=== PATIENT | female | born 1960 | race Caucasian/White ===

== ENCOUNTER 2024-09-25 09:46 | Outpatient (AMB) | payer BC, SELFPAY ==
--- NOTE | 2024-09-25 09:49 | A.OFFPC_ITS ---
Vital Signs 09/25/24 09:56 Height 5 ft 4 in Weight 153 lb 4 oz BMI 26.3 BP 136/70 Blood Pressure Location Rt brachial Position Sitting Respiration 14 Pulse 51 Pulse Source Pulse Oximeter Temp 97.3 F Temp Source Oral Pulse Oximetry (%) 99 Oxygen Delivery Method Room Air Intake Visit Reasons: STRATEGIC ACCOUNTS MANAGER/PErequest Intake Note: patient scheduled for new patient visit to establish care. Allergies house dust Allergy (Mild, Verified 09/25/24 09:53) Runny Nose Medication List - Last Reconciled 09/25/24 by Dm Hamilton MD No Known Home Meds Tobacco use date assessed: 09/25/24 Dental Screening Dental Screen Date: 09/25/24 Did you have a dental visit in the last 12 months?: Yes Did you have a dental problem in the last 6 months where you did not have access to dental care?: No Was dental information given to patient?: No HPI STRATEGIC ACCOUNTS MANAGER/PErequest HPI Details New Patient? ?? Prior PCP:? Ping Last office visit/CPE:? 1 yr ago CPE Acute issue(s):? Thyroid nodules. U/S & Bx x 1. Saw [facility]. Due for u/s follow up Fell & Head injury a few yrs ago. Cervical spine injury of bone & Tinnitus Some hearing loss 2 yrs ago. PMHx:? Thyroid Nodules. Herniated disc Lumbar Spine SurgHx:? Thyroid Bx Neg,. Colonoscopy. L Breast Bx Neg FHx:? Mom: Cardiac Arrhythmia, BMET Cancer. Dad: CAD & Stent HTN, HLD. SocHx:? Nonsmoker, etOH 1 glass wine 2x a week. No Drugs HPI Comments History of Present Illness Details Documentation assistance for Dm Hamilton MD, was provided by Rusty Bernstein,? Laboratory Technologist on 09/25/2024 at 10:21 AM EST. I, Dr. Hamilton, have read, observed, and verified documentation. PFSH Medical History (Updated 09/25/24 @ 10:33 by Dm Hamilton MD) Vertigo Spine disorder Arthritis Anxiety Allergy Family History (Updated 09/25/24 @ 10:13 by SMA Tesfaye) Mother High blood pressure Thyroid disorder Mother High cholesterol Father High blood pressure High cholesterol Other Cardiovascular disease Social History (Updated 09/25/24 @ 10:08 by SMA Tesfaye) Housing: House Alcohol intake: current Comment: 2times a week Patient Tobacco Use Status: Never used Tobacco e-Cigarette/Vaping Use: Never Used service: No Current occupational status: employed Current occupation: custmer service Current occupational exposures/hazards: No Cognitive needs: No Hearing needs: No Vision needs: No Questionnaire PHQ-9 Over the last 2 weeks, how often have you been bothered by any of the following problems? 1. Little interest or pleasure in doing things: not at all 2. Feeling down, depressed, or hopeless: not at all 3. Trouble falling or staying asleep, or sleeping too much: not at all 4. Feeling tired or having little energy: not at all 5. Poor appetite or overeating: not at all 6. Feeling bad about yourself - or that you are a failure or have let yourself or your family down: not at all 7. Trouble concentrating on things, such as reading the newspaper or watching television: not at all 8. Moving or speaking so slowly that other people could have noticed. Or the opposite - being so fidgety or restless that you have been moving around a lot more than usual: not at all 9. Thoughts that you would be better off or of hurting yourself in some way: not at all Total score: 0 Depression Screening Interpretation: Negative Depression Screening Done: Yes 94456 - PHQ-9 Billing: Yes Source: Developed by Drs. Reid Alonzo, Lisbeth Charles, Blade White and colleagues, with an educational brent from [employer]. Thrive Questionnaire Date Thrive assessed: 09/25/24 I am a: Patient What is your living situation today?: I have a steady place to live Within the past 12 months, did the food you bought not last and you didn't have the money to get more?: Never true Within the past 12 months, did you worry whether your food would run out before you got money to buy more?: Never true Do you have trouble paying for medicines?: No Do you have trouble getting transportation to medical appointments?: No Do you have trouble paying your heating and electricity bill?: No Do you have trouble taking care of your child, family member or friend?: No Do you have trouble with day-to-day activities such as bathing, preparing meals, shopping, managing finances, etc.?: No Are you currently unemployed and looking for a job?: No Are you interested in more education?: No Please select the resources that you would like help with: None Currently or been in a relationship where the following occur: No concerns reported THRIVE Score: 0 AUDIT C Alcohol Use Questionnaire (AUDIT-C) 1. How often do you have a drink containing alcohol?: 2-3 times a week 2. How many drinks containing alcohol do you have on a typical day when you are drinking?: 1 or 2 3. How often do you have six or more drinks on one occasion?: Never Total Score: 3 MURTAZA-7 AMB Questionnaire MURTAZA-7 Date MURTAZA - 7 assessed: 09/25/24 Feeling nervous, anxious, or on edge: 1 = Several days Not being able to stop or control worryin = Not at all Worrying too much about different things: 0 = Not at all Trouble relaxin = Several days Being so restless that it is hard to sit still: 0 = Not at all Becoming easily annoyed or irritable: 1 = Several days Feeling afraid as if something awful might happen: 0 = Not at all Total MURTAZA-7 score (0-4 normal; 5-9 mild; 10-14 moderate; 15-21 severe): 3 Source: Developed by Drs. Reid Alonzo, Lisbeth Charles, Blade White and colleagues, with an educational brent from [employer]. MURTAZA-7 Assessment Billing MURTAZA-7 Assessment Tool: MURTAZA-7 Assessment 49507 Review of Systems Const Denies chills, Denies fatigue, Denies fever(s), Denies headache(s) and Denies weakness ENT Denies dizziness and Denies headache(s) Card Denies chest pain, Denies lightheadedness, Denies dyspnea and Denies other (Palpitations) Resp Denies cough, Denies dyspnea, Denies wheezing and Denies other ( shortness of breath) Musc Denies numbness and Denies tingling Neuro Denies dizziness, Denies headache(s), Denies numbness, Denies tingling, Denies paresthesias and Denies weakness Psych Denies anxiety and Denies depression Endo Denies fatigue Aller/Immun Denies wheezing Physical exam (Primary Care) Vital Signs: Last Vital Signs Temp 97.3 F 09/25/24 09:56 Pulse 51 09/25/24 09:56 Resp 14 09/25/24 09:56 BP 136/70 09/25/24 09:56 Pulse Ox 99 09/25/24 09:56 Oxygen Delivery Method Room Air 09/25/24 09:56 BMI result Body Mass Index 26.3 Tobacco/Smoking Status: Tobacco use Status Tobacco use date assessed 09/25/24 09/25/24 10:00 Patient Tobacco Use Status Never used Tobacco 09/25/24 10:00 e-Cigarette/Vaping Use Never Used 09/25/24 10:00 PHQ-9: PHQ-9 Score PHQ-9: Total score 0 09/25/24 10:03 Depression Screening Interpretation: Negative Thrive Assessment: Date of Thrive Assessment Date Thrive assessed 09/25/24 09/25/24 10:00 Currently or been in a relationship where the following occur: No concerns reported Const General: no acute distress and well developed Nutritional Appearance: well nourished Orientation/consciousness: patient oriented x3 HENMT Head: Yes normocephalic and Yes atraumatic Eyes General: appearance normal, both eyes and all related structures Pupils: Equal, round and reactive pupils present EOM: EOMs intact bilaterally Resp Effort & Inspection: normal respiratory effort Auscultation: clear to auscultation bilaterally Cardio Rate: regular rate Rhythm: regular rhythm Heart sounds: S1 normal heart sound present, S2 normal heart sound present, no gallops, no murmurs and no rubs Neuro General: patient oriented x3 and gait normal Cranial nerves: Yes Equal, round and reactive pupils present Psych Affect: normal affect Coding Level of Care Code New Pt Level 3 (95104) Diagnoses Multiple thyroid nodules E04.2 Hearing loss H91.90 Lumbar herniated disc M51.26 Laboratory exam ordered as part of routine general medical examination Z00.00 Additional Codes MURTAZA-7 Assessment Billing - MURTAZA-7 Assessment Tool: MURTAZA-7 Assessment 11383 ([id number]) PHQ-9 - 91620 - PHQ-9 Billing: Yes ([id number]) Assessment & Plan Assessment & Plan (1) Multiple thyroid nodules: Code(s): E04.2 - Nontoxic multinodular goiter Category: Medical Plan: History?of?multiple?thyroid?nodules Workup? at?Ping?including?ultrasound?and?biopsy?x1?which?patient?says?was?negative Due?for?follow-up?ultrasound-ordered Will?review?and?compare?with?prior?workup/records?and?discuss?next?steps?with?asher lima (2) Hearing loss: Code(s): H91.90 - Unspecified hearing loss, unspecified ear Category: Medical Plan: Hearing?loss?after?fall?with?head?and?neck?injury Has?issues?with?hearing?loss?and?some?vertigo No?recent?changes She?will?let?me?know?if?she?evans s?any?changes,?would?consider?referral?for?audiometric?testing?or?referral?to?[facility] (3) Lumbar herniated disc: Code(s): M51.26 - Other intervertebral disc displacement, lumbar region Category: Medical Plan: Patient?says?she?manages?this?with?stretching?exercises Stable She?will?let?me?know?if?anything?changes (4) Laboratory exam ordered as part of routine general medical examination: Code(s): Z00.00 - Encounter for general adult medical examination without abnormal findings Category: Medical Plan: Check?labs Orders: Orders Microalbumin, Random (w Creat) Today I10 - Essential (primary) hypertension Lipid Panel Today Z00.00 - Encounter for general adult medical examination without abnormal findings UA CC w/rflx Micro + Cult Today Z00.00 - Encounter for general adult medical examination without abnormal findings Thyroid Stimulating Hormone Today E03.9 - Hypothyroidism, unspecified, E04.2 - Nontoxic multinodular goiter Comprehensive [place]. Panel Fast Today Z00.00 - Encounter for general adult medical examination without abnormal findings Complete Blood Count Auto Diff Today Z00.00 - Encounter for general adult medical examination without abnormal findings US thyroid Today E04.2 - Nontoxic multinodular goiter Free T4 (Free Thyroxine) Today E03.9 - Hypothyroidism, unspecified, E04.2 - Nontoxic multinodular goiter Triiodothyronine T3 Total Today E03.9 - Hypothyroidism, unspecified, E04.2 - Nontoxic multinodular goiter Referrals Dermatology Referral L57.8 - Other skin changes due to chronic exposure to nonionizing radiation
[2024-09-25 09:56] VITALS: BP 136/70; PULSE 51; RESP 14; TEMP 36.3; O2SAT 99; BMI 26.3
--- OUTSIDE RECORDS SUMMARY | 2024-09-25 10:10 | XMS_ITS | Clinical Summary ---
Author Organization [facility] Address [address] [place] [id number] Phone Care Team Providers Care Grain Scooper Name Role Phone Gissell Nolasco MD Primary Care Provider [phone] Surgical History Surgery Date Site/Laterality Comments MULTIPLE TOOTH EXTRACTIONS PROCEDURE: EACH ADD TOOTH EXTRACTION; COMMENT: wisdom teeth COLONOSCOPY 05/22/13 PROCEDURE: HISTORICAL COLONOSCOPY; COMMENT: tics; repeat in ten yrs Medical History Medical History Date Comments Osteoarthrosis, unspecified whether generalized or localized, unspecified site DX:Osteoarthrosis, unspecifi ed whether generalized or localized, unspecified site; COMMENT: RT KNN, HANDS Allergic rhinitis due to pollen DX:Allergic rhinitis due to pollen Disc disorder of lumbar region 09/24/2007 D X:Disc disorder of lumbar region WBC decreased DX:WBC decreased Multiple thyroid nodules DX:Mult iple thyroid nodules Hyperlipidemia 07/18/2023 DX:Hyperlipidemi a Family History Medical History Relation Name Comments Arthritis Father CAD Heart failure Maternal Grandfather Coronary artery disease Maternal Grandmother Hypertension Mother dementia, glauc manjinder, thyroid issue, osteoporosis, pacemaker Thyroid disease Mother Alcohol/Drug Paternal Grandfather ETOH Heart failure Paternal Grandmother DECEAS ED 80'S, colon cancer No Known Problems Sister Relation Name Status Comments Father Alive Maternal Grandfather Maternal Grandmother Mother (Age 94) Paternal Grandfather Paternal Grandmother Sister Alive Social History Tobacco Use Types Packs/Day Years Used Date Smoking Tobacco: Never Smokeless Tobacco: Never Alcohol Use Standard Drinks/Week Comments Yes 1.7 (1 standard drink = 0.6 oz p ure alcohol) Comments Unknown Sex and Gender Information Value Date Recorded Sex Assigned at Not on file Legal Sex Female 7:21 AM EST Gender Identity Not on file Sexual Orientation Not on file Obstetrics History Last Filed Vital Signs Vital Sign Reading Time Taken Comments Blood Pressure 134/58 10/08/2023 3:11 PM EDT Pulse 61 10/08/2023 3:11 PM EDT Temperature - - Respiratory Rate - - Oxygen Saturation - - Inhaled Oxygen Concentration - - Weight 67.6 kg (149 lb) 10/08/2023 3:11 PM EDT Height 165.1 cm (5' 5 ) 10/08/2023 3:11 PM EDT Body Mass Index 24.79 10/08/2023 3:11 PM EDT Plan of Treatment Health Maintenance Due Date Last Done Comments Breast Cancer Screening 1960 Cervical Cancer Screening: P ap Smear 09/23/1983 Pneumococcal Vaccine: 50+ Years (1 of 1 - PCV) 2012 Zoster Vaccines (2 of 2) 04/14/2020 02/18/2020 Cholesterol Screening (Lipid Panel) 04/07/2022 Colorectal Cancer Screening: Colonoscopy 04/07/2022 Depression Screening 04/07/2022 HIV Screening 04/07/2022 Hepatitis C Screening 04/07/2022 Social Influencers of Health Screening 04/07/2022 COVID-19 Vaccine (1 - 2023-2 5 season) 2023 Influenza Vaccine (Season Ended) 2024 DTaP,Tdap,and Td Vaccines (4 - Td or Tdap) 04/21/2031 04/21/2021, 09/05/2015, 08/05/2002 RSV Immunization Adult Patients (1 - 1-dose 75+ series) 2037 HIB Vaccines Aged Out No longer eligi ble based on patient's age to complete this topic HPV Vaccines Aged Out No longer eligi ble based on patient's age to complete this topic Hepatitis A Vaccines Aged Out No long er eligible based on patient's age to complete this topic Hepatitis B Vaccines Aged Out No long er eligible based on patient's age to complete this topic IPV Vaccines Aged Out No longer eligi ble based on patient's age to complete this topic MMR Vaccines Aged Out No longer eligi ble based on patient's age to complete this topic Meningococcal ACWY Vaccine Aged Out N o longer eligible based on patient's age to complete this topic Meningococcal B Vaccine Aged Out No l onger eligible based on patient's age to complete this topic Pneumococcal Vaccine: Pediatrics (0 to 5 Years) and At-Risk Patients (6 to 64 Years) Aged Out No longer eligible b ased on patient's age to complete this topic RSV Immunization Patients Under 20 months Aged Out No longer eligible b ased on patient's age to complete this topic Varicella Vaccines Aged Out No longer eligible based on patient's age to complete this topic Insurance Care Teams Grain Scooper Relationship Specialty Start Date End Date Gissell Nolasco MD PCP - General 09/11/23
== END 2024-09-25 10:30 | disposition home or self-care (01) ==
LOC: HO.HMCFM 09:47
PROVIDERS: PCP Family Medicine; Visit Provider Family Medicine
DX: E04.2 Nontoxic multinodular goiter (principal); H91.90 Unspecified hearing loss, unspecified ear; M51.26 Other intervertebral disc displacement, lumbar region; Z00.00 Encounter for general adult medical examination without abnormal findings

== ENCOUNTER → 2024-09-25 09:46 | Outpatient (BNVA) | payer BC, SELFPAY | PROVIDERS: PCP Family Medicine; Visit Provider Family Medicine | DX: Z76.89 Persons encountering health services in other specified circumstances (principal); E04.2 Nontoxic multinodular goiter; H91.90 Unspecified hearing loss, unspecified ear; M51.26 Other intervertebral disc displacement, lumbar region; Z13.30 Encounter for screening examination for mental health and behavioral disorders, unspecified; Z13.31 Encounter for screening for depression | CPT/HCPCS: 96127 ==

== ENCOUNTER 2024-10-08 09:24 | Outpatient (REF) | payer BC, SELFPAY ==
--- OUTSIDE RECORDS SUMMARY | 2024-10-08 10:15 | XMS_ITS | Clinical Summary ---
Author Organization [facility] Address [address] [place] [id number] Phone Care Team Providers Care Quality Assurance Specialist Name Role Phone Gissell Nolasco MD Primary Care Provider [phone] Surgical History Surgery Date Site/Laterality Comments MULTIPLE [...] to complete this topic Insurance Care Teams Quality Assurance Specialist Relationship Specialty Start Date End Date Gissell Nolasco MD PCP - General 09/11/23
[2024-10-08 11:22] LABS: Appearance Urine Clear; Color Urine Yellow; Glucose Urine UA Negative (Negative); Leukocyte Esterase Urine Large (3+) (Negative); Nitrite Urine Negative (Negative); PH 7.5 (5.0-9.0); UMIC TRIGGER UACC YES; Urine Blood Negative (Negative); Urine Ketones Negative (Negative); Urine Protein Negative (Neg-Trace)
[2024-10-08 11:23] LABS: MANUAL DIFF FLAG NO
[2024-10-08 11:25] LABS: Bacteria Urine None Seen (None Seen); Hyaline Casts Urine 0-2 /LPF (0-2); RBC Urine 0-2 /HPF (0-2); Squamous Epithelial Cell Urine 0-2 /HPF (0-2); UACC Culture Trigger YES
[2024-10-08 11:29] LABS: Basophils Percent Auto 0.3 % (0-2); Eosinophils Percent Auto 0.8 % (0-4); Hematocrit 39.8 % (37.0-47.0); Hemoglobin 13.2 g/dl (12.0-16.0); Imm Gran Abs Auto 0.01 X10*3/uL (0.00-0.03); Imm Gran Pct Auto 0.3 % (0.0-0.4); Lymphocytes Absolute Auto 1.1 X10*3/uL (1.2-4.9); Lymphocytes Percent Auto 26.6 % (20-40); Mean Corpuscular HGB Conc 33.2 g/dl (31.0-35.0); Mean Corpuscular Hemoglobin 29.3 pg (27.0-33.0); Mean Corpuscular Volume 88.4 fL (80.0-98.0); Mean Platelet Volume 10.6 fL (9.4-12.3); Monocytes Absolute Auto 0.2 X10*3/uL (0.1-1.2); Monocytes Percent Auto 5.6 % (2-11); Neutrophils Absolute Auto 2.6 x10*3/uL (2.0-8.3); Neutrophils Percent Auto 66.4 % (45-73); Platelet Count 183 X10*3/uL (160-400); White Blood Count 3.9 X10*3/uL (4.8-10.8)
[2024-10-08 11:51] LABS: Alanine Aminotransferase 34 U/L (0-31); Albumin Level 4.5 g/dL (3.5-5.0); Alkaline Phosphatase 48 U/L (39-117); Anion Gap 10 (12-20); Aspartate Amino Transferase 31 U/L (5-31); Bilirubin Total 1.4 mg/dL (0.0-1.0); Blood Urea Nitrogen 13 mg/dL (9-16); Calcium 9.5 mg/dL (8.4-10.2); Carbon Dioxide 29 mmol/L (22-29); Chloride 104 mmol/L (96-108); Cholesterol 222 mg/dL (<200); Estimated Glomerular Filt Rate > 60; Glucose Fasting 94 mg/dL (60-99); HDL Cholesterol 66 mg/dL (>40); LDL Cholesterol Calculated 142 mg/dL (<100); Potassium 4.1 mmol/L (3.3-5.1); Sodium 139 mmol/L (135-145); Total Protein 7.2 g/dL (6.5-8.0); Triglycerides 71 mg/dL (<150)
[2024-10-08 11:51] LABS: Creatinine Urine 58.92 mg/dL; Microalbum/Creatinine Ratio Ur 18.6 ug/mg cr (<30)
[2024-10-08 12:10] LABS: Free T4 (Free Thyroxine) 1.12 ng/dL (0.71-1.85); Thyroid Stimulating Hormone 0.81 uIU/mL (0.32-4.0)
[2024-10-09 12:24] LABS: Triiodothyronine T3 Total 101 ng/dL (76-181)
== END 2024-10-08 09:25 | disposition home or self-care (01) ==
LOC: HO.WFDLDS 09:24
PROVIDERS: Visit Provider Family Medicine
DX: I10 Essential (primary) hypertension (principal); Z00.00 Encounter for general adult medical examination without abnormal findings; E03.9 Hypothyroidism, unspecified; E04.2 Nontoxic multinodular goiter
CPT/HCPCS: 36415; 80053; 80061; 81001; 82043; 82570; 84439; 84443; 84480; 85025; 87086; 87147

== ENCOUNTER 2024-11-17 10:24 | Outpatient (REF) | payer BC, SELFPAY ==
--- NOTE | ~2024-11-17 | US_ITS ---
EXAMINATION: US THYROID HISTORY: E04.2 - Nontoxic multinodular goiter TECHNIQUE: Real-time grayscale ultrasound imaging was performed and images were reviewed. COMPARISON: There are no prior studies available for comparison. FINDINGS: SIZE: The right thyroid lobe measures 4.9 x 1.4 x 1.4 cm. The left thyroid lobe measures 6.4 x 1.6 x 1.8 cm. The isthmus measures 5 mm. FLOW: Flow to the gland is increased on the left. ECHOGENICITY: The echotexture of the gland is heterogeneous on the left. NODULES: There is a 7 mm spongiform nodule at the upper pole of the right thyroid lobe. In addition, multiple left thyroid nodules are identified as described below: Nodule #: 1 Location: Lower pole of the left thyroid lobe measuring 2.0 x 1.0 x 1.3 cm. Shape: Wider than tall (0 points) Margins: Smooth (0 points) Echotexture: Hypoechoic (2 points) Composition: Solid (2 points) Calcifications: None (0 points) Total points: 4 TIRADS: TR4: Moderately suspicious. Nodule #: 2 Location: Mid to lower pole of the left thyroid lobe measuring 3.7 x 1.6 x 3.2 cm. Shape: Wider than tall (0 points) Margins: Extrathyroidal extension (3 points) Echotexture: Hypoechoic (2 points) Composition: Solid (2 points) Calcifications: None (0 points) Total points: 7 TIRADS: TR5: Highly suspicious. US/US thyroid IMPRESSION: Left-sided nodules as described above which meet the ACR TI-RADS criteria for ultrasound-guided fine-needle aspiration. ACR TI-RADS Guidelines TR1 (0 points): Benign, No follow-up or biopsy required TR2 (2 points): Not Suspicious, No biopsy or follow up indicated TR3 (3 points): Mildly Suspicious, FNA if >= 2.5 cm, Follow if >= 1.5 cm TR4 (4-6 points): Moderately Suspicious, FNA if >= 1.5 cm, Follow if >= 1.0 cm TR5 (>=7 points): Highly Suspicious, FNA if >= 1.0 cm, Follow if >= 0.5 cm Electronically signed by: Reid Cortes MD 11/17/2024 12:32 PM EDT
--- OUTSIDE RECORDS SUMMARY | 2024-11-17 11:31 | XMS_ITS | Clinical Summary ---
Author Organization [facility] Address [address] [place] [phone] Phone Care Team Providers Care Tongue Binder Name Role Phone Gissell Nolasco MD Primary Care Provider [phone] Surgical History Surgery Date Site/Laterality Comments MULTIPLE [...] Panel) 04/07/2022 Colorectal Cancer Screening: Colonoscopy 04/07/2022 HIV Screening 04/07/2022 Hepatitis C Screening 04/07/2022 Social Influencers of Health Screening 04/07/2022 COVID-19 Vaccine (1 - 2023-2 5 season) 2023 Depression Screening 04/29/2024 Influenza Vaccine (#1) 2024 DTaP,Tdap,and Td Vaccines (4 - Td [...] to complete this topic Insurance Care Teams Tongue Binder Relationship Specialty Start Date End Date Gissell Nolasco MD PCP - General 09/11/23
--- OUTSIDE RECORDS SUMMARY | 2024-11-17 11:31 | XMS_ITS ---
Author Name [facility] Organization Unknown Care Team Organization Name Specialty Phone Email Start Date End [facility] 08/27/2023 09/28/2024
== END 2024-11-17 10:25 | disposition home or self-care (01) ==
LOC: HO.HMGCX 10:24
PROVIDERS: PCP Family Medicine; Visit Provider Family Medicine
DX: E04.2 Nontoxic multinodular goiter (principal)
CPT/HCPCS: 76536

== ENCOUNTER → 2024-11-17 10:31 | Outpatient (BNV) | payer BC, SELFPAY | PROVIDERS: PCP Family Medicine; Visit Provider Radiology Diagnostic Radiology | DX: E04.2 Nontoxic multinodular goiter (principal) | CPT/HCPCS: 76536 ==

== ENCOUNTER 2025-01-13 13:53 | Outpatient (AMB) | payer BC, SELFPAY ==
--- NOTE | 2025-01-13 14:01 | MHC.PC.OV ---
Vital Signs 01/13/25 14:06 Height 5 ft 4 in Weight 147 lb BMI 25.2 BP 140/72 H Blood Pressure Location Rt brachial Position Sitting Respiration 14 Pulse 54 Pulse Source Pulse Oximeter Temp 98.4 F Temp Source Temporal Artery Scan Pulse Oximetry (%) 97 Oxygen Delivery Method Room Air Intake Visit Reasons: CPE with f/u labs and health maint. Intake Note: Pamela presents in the office today for her annual physical and a follow up to her lab results. Allergies house dust Allergy (Mild, Verified 01/13/25 14:01) Runny Nose Medication List - Last Reconciled 01/13/25 by Dm Hamilton MD estradiol (Yuvafem) 10 mcg vaginal 2XW Tobacco use date assessed: 01/13/25 Dental Screening Dental Screen Date: 01/13/25 Did you have a dental visit in the last 12 months?: Yes Did you have a dental problem in the last 6 months where you did not have access to dental care?: No Was dental information given to patient?: Patient has dentist HPI CPE with f/u labs and health maint. HPI Details 64 y/o female presents for a CPE with f/u labs and health maint. Labs drawn 10/08/24. Reviewed labs with pt. Elevated ALT of 34. Triglycerides 71. TC 222. LDL 142. HDL 66. TSH 0.81 uIU/mL. Free T4 1.12 ng/dL. Total T3 101 ng/dL. Hx of thyroid nodules. Thyroid ultrasound 11/17/24 identified multiple thyroid nodules. Reports some hearing loss. Reports constipation. She notes she had a mammogram this year and is up to date. Last pap smear normal per pt. Pt notes she had a recent bone density test which was fine. Pt reports changes to her gait. HPI Comments History of Present Illness Details Documentation assistance for Dm Hamilton MD, was provided by Rusty Bernstein,? Foreign Language Professor on at 2:49 PM EST. I, Dr. Hamilton, have read, observed, and verified documentation. ? PFSH Medical History (Updated 01/13/25 @ 14:51 by Rusty Bernstein) Vertigo Spine disorder Arthritis Anxiety Allergy Family History (Updated 01/13/25 @ 14:04 by Jamila Jordan [facility]) Mother High blood pressure Thyroid disorder Mother High cholesterol Father High blood pressure High cholesterol Paternal Aunt FH: mental illness Paternal Grandfather Substance abuse Other Cardiovascular disease Social History (Updated 01/13/25 @ 14:04 by Jamila Jordan [facility]) Housing: House Alcohol intake: current Comment: 2times a week Patient Tobacco Use Status: Never used Tobacco e-Cigarette/Vaping Use: Never Used Second Hand Smoke Exposure: No service: No Current occupational status: employed Current occupation: custmer service Current occupational exposures/hazards: No Cognitive needs: No Hearing needs: No Vision needs: No Questionnaire PHQ-9 Over the last 2 weeks, how often have you been bothered by any of the following problems? 1. Little interest or pleasure in doing things: not at all 2. Feeling down, depressed, or hopeless: not at all 3. Trouble falling or staying asleep, or sleeping too much: not at all 4. Feeling tired or having little energy: not at all 5. Poor appetite or overeating: not at all 6. Feeling bad about yourself - or that you are a failure or have let yourself or your family down: not at all 7. Trouble concentrating on things, such as reading the newspaper or watching television: not at all 8. Moving or speaking so slowly that other people could have noticed. Or the opposite - being so fidgety or restless that you have been moving around a lot more than usual: not at all 9. Thoughts that you would be better off or of hurting yourself in some way: not at all Total score: 0 Depression Screening Interpretation: Negative Depression Screening Done: Yes 42345 - PHQ-9 Billing: Yes Source: Developed by Drs. Reid Alonzo, Lisbeth Charles, Blade White and colleagues, with an educational brent from [employer]. Thrive Questionnaire Date Thrive assessed: 01/13/25 I am a: Patient What is your living situation today?: I have a steady place to live Within the past 12 months, did the food you bought not last and you didn't have the money to get more?: Never true Within the past 12 months, did you worry whether your food would run out before you got money to buy more?: Never true Do you have trouble paying for medicines?: No Do you have trouble getting transportation to medical appointments?: No Do you have trouble paying your heating and electricity bill?: No Do you have trouble taking care of your child, family member or friend?: No Do you have trouble with day-to-day activities such as bathing, preparing meals, shopping, managing finances, etc.?: No Are you currently unemployed and looking for a job?: No Are you interested in more education?: No Please select the resources that you would like help with: None Currently or been in a relationship where the following occur: No concerns reported THRIVE Score: 0 AUDIT C Alcohol Use Questionnaire (AUDIT-C) 1. How often do you have a drink containing alcohol?: Monthly or less 2. How many drinks containing alcohol do you have on a typical day when you are drinking?: 1 or 2 3. How often do you have six or more drinks on one occasion?: Never Total Score: 1 MURTAZA-7 AMB Questionnaire MURTAZA-7 Date MURTAZA - 7 assessed: 01/13/25 Feeling nervous, anxious, or on edge: 1 = Several days Not being able to stop or control worryin = Not at all Worrying too much about different things: 0 = Not at all Trouble relaxin = Not at all Being so restless that it is hard to sit still: 0 = Not at all Becoming easily annoyed or irritable: 1 = Several days Feeling afraid as if something awful might happen: 0 = Not at all Total MURTAZA-7 score (0-4 normal; 5-9 mild; 10-14 moderate; 15-21 severe): 2 Source: Developed by Drs. Reid Alonzo, Lisbeth Charles, Blade White and colleagues, with an educational brent from [employer]. MURTAZA-7 Assessment Billing MURTAZA-7 Assessment Tool: MURTAZA-7 Assessment 18532 Review of Systems Const Denies chills, Denies fatigue, Denies fever(s), Denies headache(s) and Denies weakness Eyes Denies change in vision ENT Denies dizziness, Denies headache(s), Denies hearing loss, Denies nasal congestion, Denies sinus pain, Denies sinus pressure and Denies sore throat Card Denies chest pain, Denies lightheadedness, Denies dyspnea and Denies other (palpitations) Resp Denies cough, Denies dyspnea and Denies wheezing GI Denies abdominal pain, Denies melena, Denies hematochezia, Denies change in bowel habits, Denies dyspepsia and Denies nausea Denies hematuria and Denies dysuria Musc Denies abnormal gait, Denies myalgias, Denies arthralgias, Denies numbness and Denies tingling Skin/Breast Denies rash, Denies unusual bruising and Denies wounds Neuro Denies abnormal gait, Denies dizziness, Denies headache(s), Denies memory loss, Denies numbness, Denies Sensory deficit (Neuro), Denies tingling and Denies weakness Psych Denies anxiety, Denies depression and Denies memory loss Endo Denies cold intolerance, Denies fatigue, Denies heat intolerance, Denies polydipsia and Denies polyuria Ozzie/Lymph Denies easy bleeding and Denies easy bruising Aller/Immun Denies wheezing Physical exam (Primary Care) Vital Signs: Last Vital Signs Temp 98.4 F 01/13/25 14:06 Pulse 54 01/13/25 14:06 Resp 14 01/13/25 14:06 BP 140/72 H 01/13/25 14:06 Pulse Ox 97 01/13/25 14:06 Oxygen Delivery Method Room Air 01/13/25 14:06 BMI result Body Mass Index 25.2 Tobacco/Smoking Status: Tobacco use Status Tobacco use date assessed 01/13/25 01/13/25 14:09 Patient Tobacco Use Status Never used Tobacco 01/13/25 14:09 e-Cigarette/Vaping Use Never Used 01/13/25 14:09 PHQ-9: PHQ-9 Score PHQ-9: Total score 0 01/13/25 14:09 Depression Screening Interpretation: Negative Thrive Assessment: Date of Thrive Assessment Date Thrive assessed 01/13/25 01/13/25 14:09 Currently or been in a relationship where the following occur: No concerns reported Const General: no acute distress, well developed, alert and awake Nutritional Appearance: well nourished Orientation/consciousness: patient oriented x3 HENMT Head: Yes normocephalic and Yes atraumatic Ears: hearing grossly normal bilaterally and TM's normal bilaterally General nose exam: Normal external nose present and Normal nares present Mouth: Normal oral and palatal mucosa present and moist mucous membranes Teeth and gingiva: dentition normal Throat: Yes posterior oropharynx normal Eyes General: appearance normal, both eyes and all related structures Pupils: Equal, round and reactive pupils present and Pupil accommodation reflex normal EOM: EOMs intact bilaterally Neck Neck: Yes normal visual inspection, Yes no lymphadenopathy and Yes trachea midline Thyroid: Thyroid normal Carotids: no bruits Lymphatic: no lymphadenopathy noted Chest Chest palpation & inspection: normal inspection of the chest Resp Effort & Inspection: normal respiratory effort Auscultation: clear to auscultation bilaterally Cardio Rate: regular rate Rhythm: regular rhythm Heart sounds: S1 normal heart sound present, S2 normal heart sound present, no gallops, no murmurs and no rubs Bruits: no abdominal aortic bruits and no carotid bruits GI Palpation (GI): No Abdominal aortic bruit present, Soft to palpation, nontender, No hepatosplenomegaly present and No Rebound tenderness present Auscultation: normal bowel sounds General: Yes no CVA tenderness Back/Spine/Pelvis Back: no CVA tenderness Cervical Spine: cervical ROM normal and No Cervical spine tenderness Thoracic/Lumbar Spine: thoraco-lumbar ROM normal, No pain with thoraco-lumbar ROM, No thoracic spinal tenderness and No lumbar spinal tenderness Skin Lesions: no lesions Rashes: no rashes Trauma: no lacerations or abrasions Wounds: no wounds Nails: normal Neuro General: patient oriented x3 Cranial nerves: Yes Equal, round and reactive pupils present Cognition (Neuro): normal cognition Gait exam (Neuro): Normal gait present Motor exam (neuro): 5/5 motor strength present throughout Sensory Exam: No Sensory deficit (Neuro) Deep tendon reflexes (DTR's): Right patellar reflex intensity grade: 2+ and Left patellar reflex intensity grade: 2+ Extrem General: Yes normal to inspection and No edema Psych Appearance: grossly normal Affect: normal affect Attitude: cooperative Thought process: Normal thought process present Coding Level of Care Code Est Pt Level 3 (77608) Est Pt Prev Care 40-64y(42798) Diagnoses Adult general medical exam Z00.00 Multiple thyroid nodules E04.2 Hypercholesterolemia E78.00 Elevated ALT measurement R74.01 Altered gait R26.9 Hearing loss H91.90 Constipation K59.00 Screening for cervical cancer Z12.4 Screening for colon cancer Z12.11 Breast cancer screening by mammogram Z12.31 Screening for osteoporosis Z13.820 Additional Codes MURTAZA-7 Assessment Billing - MURTAZA-7 Assessment Tool: MURTAZA-7 Assessment 98453 ([id number]) PHQ-9 - 00760 - PHQ-9 Billing: Yes ([id number]) Assessment & Plan Assessment & Plan (1) Adult general medical exam: Code(s): Z00.00 - Encounter for general adult medical examination without abnormal findings Category: Medical Plan: 64-year-old female presents for complete physical exam Encouraged healthy diet with active lifestyle and plenty of exercise (2) Multiple thyroid nodules: Code(s): E04.2 - Nontoxic multinodular goiter Category: Medical Plan: History of multiple nodules Fine-needle aspiration in 2021 was negative She has had follow-up ultrasound in September 2023 Recent follow-up appears to show changes in nodules. Recommending fine-needle aspiration - ordered (3) Hypercholesterolemia: Code(s): E78.00 - Pure hypercholesterolemia, unspecified Category: Medical Plan: Elevated LDL cholesterol She will work on changes in lifestyle and we will recheck prior to her next visit (4) Elevated ALT measurement: Code(s): R74.01 - Elevation of levels of liver transaminase levels Category: Medical Plan: Increase hydration Will recheck with next blood draw (5) Altered gait: Code(s): R26.9 - Unspecified abnormalities of gait and mobility Category: Medical Plan: Referred to physical therapy for evaluation of gait and treatment Mildly positive Trendelenburg test (6) Hearing loss: Code(s): H91.90 - Unspecified hearing loss, unspecified ear Category: Medical Plan: She would like to let me know if hearing changes and she wants to recheck hearing (7) Constipation: Code(s): K59.00 - Constipation, unspecified Category: Medical Plan: Increase hydration Continue Benefiber (8) Screening for cervical cancer: Code(s): Z12.4 - Encounter for screening for malignant neoplasm of cervix Category: Medical Plan: Followed by Dr. Navarro Up-to-date Will request report (9) Screening for colon cancer: Code(s): Z12.11 - Encounter for screening for malignant neoplasm of colon Category: Medical Plan: Last colonoscopy a year ago and found 1 polyp. She was told to follow-up in 5 years Up-to-date (10) Breast cancer screening by mammogram: Code(s): Z12.31 - Encounter for screening mammogram for malignant neoplasm of breast Category: Medical Plan: Mammograms managed by Dr. Navarro Up-to-date Will request report (11) Screening for osteoporosis: Code(s): Z13.820 - Encounter for screening for osteoporosis Category: Medical Plan: Patient says she had a bone density last year which was negative To date Orders: Orders PT Evaluation and Treatment Today R26.9 - Unspecified abnormalities of gait and mobility Lipid Panel Today E78.00 - Pure hypercholesterolemia, unspecified, Z00.00 - Encounter for general adult medical examination without abnormal findings US guided fine needle asp Today E04.2 - Nontoxic multinodular goiter Comprehensive [place]. Panel Fast Today R74.01 - Elevation of levels of liver transaminase levels, Z00.00 - Encounter for general adult medical examination without abnormal findings
[2025-01-13 14:06] VITALS: BP 140/72; PULSE 54; RESP 14; TEMP 36.9; O2SAT 97; BMI 25.2
== END 2025-01-13 14:54 | disposition home or self-care (01) ==
LOC: HO.HMCFM 13:54
PROVIDERS: PCP Family Medicine; Visit Provider Family Medicine
DX: Z00.00 Encounter for general adult medical examination without abnormal findings (principal); E04.2 Nontoxic multinodular goiter; E78.00 Pure hypercholesterolemia, unspecified; R74.01 Elevation of levels of liver transaminase levels; R26.9 Unspecified abnormalities of gait and mobility; H91.90 Unspecified hearing loss, unspecified ear; K59.00 Constipation, unspecified; Z12.4 Encounter for screening for malignant neoplasm of cervix; Z12.11 Encounter for screening for malignant neoplasm of colon; Z12.31 Encounter for screening mammogram for malignant neoplasm of breast; Z13.820 Encounter for screening for osteoporosis

== ENCOUNTER → 2025-01-13 13:53 | Outpatient (BNVA) | payer BC, SELFPAY | PROVIDERS: PCP Family Medicine; Visit Provider Family Medicine | DX: Z00.00 Encounter for general adult medical examination without abnormal findings (principal); E04.2 Nontoxic multinodular goiter; E78.00 Pure hypercholesterolemia, unspecified; R74.01 Elevation of levels of liver transaminase levels; R26.9 Unspecified abnormalities of gait and mobility; H91.90 Unspecified hearing loss, unspecified ear; K59.00 Constipation, unspecified | CPT/HCPCS: 96127 ==

== ENCOUNTER 2025-03-19 08:00 | Outpatient (RCR) | payer BC, SELFPAY ==
--- NOTE | 2025-02-05 14:13 | MHC.PT.EP ---
[facility] [place] Office [place] Office [place] Office [address] Collin Alarcon [address] [phone] F: [phone] F: [phone] F: [phone] F: [phone] Physical Therapy Plan of Care Date of Evaluation: 02/05/25 Date of Surgery: NA Diagnosis: Unspecified abnormalities of gait and mobility Assessment: Pamela is a 64 year old female who is referred to PT for unspecified abnormalities of gait and mobility . She reports of noticing sudden onset of difficulty with walking due to L LE. She feels like her L LE is getting caught or she is scuffing with L LE. She denies any trauma or falls. On PT examination she presents with no TTP, no pain, altered pelvic symmetry weak B hip glutes, altered posture, and altered gait. She is independent with all ADLS. She works in an office- sitting or standing job. She enjoys going for brisk walks and notes difficulty with walking fast. She would benefit from skilled PT to address the aforementioned impairments and improve tolerance to functional activities. Frequency and Duration: The patient will be seen 2/week for 4 weeks Short Term Goals: 1. Pt will demonstrate initiation of HEP in 2 weeks Clerk Checker Goals: 1. Pt will present with increase in muscle strength by 1 grade which will enable her to improve gait pattern with walking fast in 5 weeks 2. Pt will be independent with HEP for symptom management and maintnenace following d/c in 5 weeks. Treatment Plan: Modalities to reduce pain, spasms and effusion. Manual therapy to restore motion and function. Therapeutic exercise to improve strength and flexibility. Neuromuscular re-education for posture and balance. Therapeutic activities to return to functional activities of daily living. Electronically signed by: Dora Gutierrez PT DPT Please sign and return to therapist. Thank you for your referral.
--- NOTE | 2025-03-30 13:37 | MHC.PT.DC ---
[facility] [place] Office [place] Office [place] Office [address] Collin Alarcon [address] [phone] F: [phone] F: [phone] F: [phone] F: [phone] Physical Therapy Discharge Report Diagnosis: Unspecified abnormalities of gait and mobility Date of Surgery: NA Date of Evaluation: 02/05/25 Date of Discharge: 03/30/25 Treatments to Date: 6 Cancellations to Date: 0 No Shows to Date: 0 Discharge Status: Discharge Summary: Pamela attended 6 PT visits and has made significant improvements with PT. She is independent with all HEPs and has achieved all goals set for her. She is therefore being d/c from PT. I reviewed all HEP with her. Pamela was in agreement with the plan. Electronically signed by: Dora Gutierrez, PT DPT Please sign and return to therapist. Thank you for your referral.
== END 2025-03-30 13:37 | disposition home or self-care (01) ==
LOC: HO.PT 08:00
PROVIDERS: PCP Family Medicine; Visit Provider Family Medicine
DX: R26.9 Unspecified abnormalities of gait and mobility (principal)
CPT/HCPCS: 97110; 97161; 97530